=== PATIENT | male | born 1960 | race African-American/Black ===

== ENCOUNTER 2017-04-05 05:59 | Day surgery (SDC) | payer BC ==
[~2017-04-05] VITALS: Ht 175.3 cm; Wt 91.4 kg
[~2017-04-05 05:59] MED LIST: LEVAQUIN500 MG PO; LISINOPRIL10 MG PO; TESTOSTERON200 MG/ML IM
[2017-04-05] MEDS ORDERED: NEXIUM20 MG PO (07:27)
[2017-04-05 07:34] VITALS: Ht 175.3 cm; Wt 91.4 kg
[2017-04-05 07:55] LABS: HEMATOCRIT 49.9 % (42.0-54.0); HEMOGLOBIN 17.4 g/dL (13.5-17.5); MCH 28.3 pg (26.0-34.0); MCHC 34.9 g/dL (31.0-37.0); MCV 81.1 fL (80.0-100.0); MEAN PLATELET VOLUME 10.5 fL (7.4-10.4); RBC 6.15 10x6/uL (4.20-6.10); RDW 13.6 % (11.5-14.5); WBC 11.3 10x3/uL (4.8-10.8)
--- NOTE | 2017-04-05 14:20 | NUR ---
1000--PT VOIDS WITHOUT DIFFICULTY, IV DC'D. PAULINE ECHAVARRIA 1010--DISCHARGE INSTRUCTIONS GIVEN, PT VERBALIZES UNDERSTANDING. PT OFF UNIT VIA WC. PAULINE ECHAVARRIA
--- NOTE | 2017-04-05 21:16 | OP ---
PATIENT NAME: MATTHEW MAYFIELD MEDICAL RECORD: [id number] :64 LOCATION:D.OPS ADMISSION DATE: SURGEON: PRATIK SORTO MD DATE OF OPERATION: 04/05/2017 DATE OF OPERATION: 04/05/2017 SURGEON: Pratik Sorto MD PREOPERATIVE DIAGNOSES: 1. Screening colonoscopy. 2. Hypertension. 3. Gastroesophageal reflux disease. POSTOPERATIVE DIAGNOSES: 1. Screening colonoscopy. 2. Hypertension. 3. Gastroesophageal reflux disease. PROCEDURE PERFORMED: Colonoscopy with hot biopsy. ANESTHESIA: Total intravenous anesthesia. SPECIMENS: 1. Ascending colon polyp. 2. Polyp at 60 cm. 3. Polyp at 40 cm. COMPLICATIONS: None. Case was contaminated. ESTIMATED BLOOD LOSS: Minimal. OPERATIVE COURSE: After consent was obtained, the patient was taken to the endoscopy suite. A timeout was taken to confirm the correct patient and procedure. The patient was placed in left lateral decubitus position, total intravenous anesthesia was given. Digital rectal exam was performed. The scope was then inserted into the rectum. The rectum was insufflated. The scope was advanced to the cecum. Ileocecal valve was identified and pictured. The appendiceal orifice was identified. Approximately 12 minutes was spent on withdrawal of the scope. Three polyps were identified, #1 in the ascending colon, #2 was at 60 cm and #3 was at 40 cm. Hot biopsy was taken of all 3 polyps. No area of bleeding was identified. No diverticulosis was identified. In the rectum, the scope was retroflexed. There was some small internal hemorrhoids noted, grade I. At this time, the scope was reinserted to the descending colon. The colon was desufflated as the scope was withdrawn. The patient will need interval colonoscopy in 3-5 years. At this time, the scope was removed and the procedure was terminated. At the end of the case, all instrument counts were correct. The patient tolerated the procedure well and was transferred to the recovery room in satisfactory condition. TRANSINT:[id number] Voice Confirmation ID: [id number] DOCUMENT ID: [id number] OPERATIVE REPORT [id number] MATTHEW MAYFIELD PRATIK SORTO MD at 2116 CC: [id number] DICTATION DATE: 04/05/17 0838 WEIGHT CLERK: 04/05/17 1322 [facility] 04/05/17 [facility] [address] [place] [address]
== END 2017-04-05 10:10 | disposition home or self-care (01) ==
LOC: D.OPS 05:59
PROVIDERS: Anesthesiology
DX: Z12.11 Encounter for screening for malignant neoplasm of colon (principal); D12.2 Benign neoplasm of ascending colon; D12.4 Benign neoplasm of descending colon; K63.5 Polyp of colon; K64.0 First degree hemorrhoids; I10 Essential (primary) hypertension; K21.9 Gastro-esophageal reflux disease without esophagitis; Z01.812 Encounter for preprocedural laboratory examination

== ENCOUNTER → 2018-09-13 15:04 | Outpatient (CLI) | payer OTHER ==
[2017-04-05 07:34] VITALS: BMI 29.7
[~2018-09-13 15:04] MED LIST changes: +NEXIUM20 MG PO
== END | disposition home or self-care (01) ==
LOC: D.US 15:04
PROVIDERS: ATTEND Family Medicine Adult Medicine
DX: M79.604 Pain in right leg (principal)

== ENCOUNTER 2019-01-22 02:40 | Emergency (ER) | payer OTHER ==
[~2019-01-22] VITALS: Ht 175.3 cm; Wt 90.5 kg
[2019-01-22] MEDS ORDERED: FLOMAX0.4 MG PO (02:56)
[2019-01-22] MEDS ORDERED: [UNRECOGNIZED DRUG - REMARK] (02:57)
[2019-01-22] MEDS ORDERED: LISINOPRIL5 MG PO (02:57)
[2019-01-22 03:27] LABS: BASOPHILS 0.4 % (0-2); EOSINOPHILS 2.8 % (0-7); HEMATOCRIT 45.7 % (42.0-54.0); HEMOGLOBIN 15.6 g/dL (13.5-17.5); IMMATURE GRANULOCYTES 0.2 % (0-5); LYMPHOCYTES 33.3 % (15-50); MCH 27.7 pg (26.0-34.0); MCHC 34.1 g/dL (31.0-37.0); MEAN PLATELET VOLUME 10.2 fL (7.4-10.4); MONOCYTES 12.9 % (2-11); NEUTROPHILS 50.4 % (40-80); PLATELET COUNT 288 10x3/uL (130-400); RBC 5.64 10x6/uL (4.20-6.10); RDW 13.9 % (11.5-14.5); WBC 8.9 10x3/uL (4.8-10.8)
[2019-01-22 03:45] LABS: ALBUMIN 3.7 g/dL (3.4-5.0); ALKALINE PHOSPHATASE 60 U/L (46-116); ALT (SGPT) 47 U/L (10-68); BILIRUBIN - TOTAL 0.37 mg/dL (0.2-1.3); CALC OSMOLALITY 280 mosm/kg (275-300); CALCIUM 8.4 mg/dL (8.5-10.1); CARBON DIOXIDE 27.4 mmol/L (21.0-32.0); CHLORIDE - SERUM 104 mmol/L (98-107); CREATININE - SERUM 0.9 mg/dL (0.6-1.3); GLUCOSE 101 mg/dL (74-106); POTASSIUM - SERUM 3.8 mmol/L (3.5-5.1); PROTEIN - SERUM 7.3 g/dL (6.4-8.2); SODIUM 140 mmol/L (136-145); UREA NITROGEN 17 mg/dL (7-18); eGFR NON AFRICAN AMERICAN > 90 mL/min (90-120)
[2019-01-22 04:02] LABS: CKMB 1.8 U/L (0.0-3.6); CREATINE KINASE 102 UL (21-232)
[2019-01-22 04:03] LABS: PRO BNP 8 pg/mL (0-125); TROPONIN-I < 0.017 ng/mL (0.000-0.060)
== END 2019-01-22 04:30 | disposition home or self-care (01) ==
LOC: D.ER 02:40
PROVIDERS: Family Medicine
DX: G47.30 Sleep apnea, unspecified (principal); K21.9 Gastro-esophageal reflux disease without esophagitis; R06.02 Shortness of breath

== ENCOUNTER → 2019-01-25 08:26 | Outpatient (CLI) | payer OTHER ==
[2019-01-22 02:55] VITALS: BMI 29.4
[~2019-01-25 08:26] MED LIST changes: +FLOMAX0.4 MG PO; +LISINOPRIL5 MG PO; +[UNRECOGNIZED DRUG - REMARK]
--- NOTE | 2019-01-27 09:56 | EC ---
PATIENT:MATTHEW MAYFIELD DATE OF SERVICE: 01/25/19 SEX: M MEDICAL RECORD: [id number] DATE OF : 64 LOCATION:D.COUNTS INCLUDE 234 BEDS AT THE [facility] AGE OF PATIENT: 58 ADMISSION DATE: 01/25/19 REFERRING PHYSICIAN: INTERPRETING PHYSICIAN: DAYA LUCIANO MD ECHOCARDIOGRAM REPORT ECHO CHARGES 4 ECHO COMPLETE Date: 01/25/19 CLINICAL DIAGNOSIS: DYSPNEA HX HTN ECHOCARDIOGRAPHIC MEASUREMENTS (adult normal given) AC root (d.<3.7cm) 3.3 cm LV Septum d (<1.2 cm> 1.3 cm Valve Excursion 1.5 cm LV Septum (systole) 1.6 cm Left Atria (s.<4.0cm> 3.9 cm LVPW d(<1.2cm) 1.5 cm RV (d.<2.3cm) 4.0 cm LVPW (sytole) 1.7 cm LV diastole(<5.6CM) 4.3 cm MV E-F(>70mm/sec) cm LV systole 2.8 cm LVOT Diameter 1.9 cm MV exc.(>10mm) 1.7 cm Est.ejection fraction (50-75%) % DOPPLER: LVIT cm/sec A 86.0 cm/sec E 74.0 cm/sec LA cm/sec RVSP 42 mmHg LVOT 100 cm/sec AOP1/2T m/s Asc. Ao 114 cm/sec RVOT 71 cm/sec RA cm/sec PA 103 cm/sec AV Gradient Peak 5.17 mmHg AV Mean 2.71 mmHg AV Area 3.3 cm MV Gradient Peak 4.16 mmHg MV Mean 1.55 mmHg MV Area cm COMMENTS: Neon Sign Installer: Wade AGUIRRE Client Consultant: 3 Dr. Yancey TAPE# PACS Pericardial Effusion N DATE OF SERVICE: 01/25/2019 Adequate 2D, color flow imaging, spectral Doppler, and M-Mode LVH is present. LV internal dimensions are normal. Wall motion is normal. EF is greater than or equal to 55%. Aortic valve is tricuspid. There is no evidence of stenosis by Doppler interrogation. Left atrium is normal at 3.9 cm. Mitral valve shows no prolapse. Trace MR. Right-sided chambers are grossly normal. Trace TR. ECHOCARDIOGRAM REPORT [id number] MATTHEW MAYFIELD TRANSINT:[id number] Voice Confirmation ID: [id number] DOCUMENT ID: [id number] DAYA LUCIANO MD at 0956 CC: [id number] DICTATION DATE: 01/26/19953 SOURCING INTERNSHIP: 01/26/19 1135 DEP CLI 01/25/19 [facility] [address] [place] [id number]
--- NOTE | 2019-01-27 09:56 | EC ---
PATIENT:MATTHEW MAYFIELD DATE OF SERVICE: 01/25/19 SEX: M MEDICAL RECORD: [id number] DATE OF : 64 LOCATION:D.[facility] AGE OF PATIENT: 58 ADMISSION DATE: 01/25/19 REFERRING PHYSICIAN: INTERPRETING PHYSICIAN: DAYA LUCIANO MD ECHOCARDIOGRAM REPORT ECHO CHARGES 4 ECHO COMPLETE Date: 01/25/19 CLINICAL DIAGNOSIS: DYSPNEA HX HTN ECHOCARDIOGRAPHIC MEASUREMENTS (adult normal given) AC root (d.<3.7cm) 3.3 cm LV Septum d (<1.2 cm> 1.3 cm Valve Excursion 1.5 cm LV Septum (systole) 1.6 cm Left Atria (s.<4.0cm> 3.9 cm LVPW d(<1.2cm) 1.5 cm RV (d.<2.3cm) 4.0 cm LVPW (sytole) 1.7 cm LV diastole(<5.6CM) 4.3 cm MV E-F(>70mm/sec) cm LV systole 2.8 cm LVOT Diameter 1.9 cm MV exc.(>10mm) 1.7 cm Est.ejection fraction (50-75%) % DOPPLER: LVIT cm/sec A 86.0 cm/sec E 74.0 cm/sec LA cm/sec RVSP 42 mmHg LVOT 100 cm/sec AOP1/2T m/s Asc. Ao 114 cm/sec RVOT 71 cm/sec RA cm/sec PA 103 cm/sec AV Gradient Peak 5.17 mmHg AV Mean 2.71 mmHg AV Area 3.3 cm MV Gradient Peak 4.16 mmHg MV Mean 1.55 mmHg MV Area cm COMMENTS: Explosive Operator Supervisor: Wade AGUIRRE Pattern Duplicator: 3 Dr. Yancey TAPE# PACS Pericardial Effusion N DATE OF SERVICE: 01/25/2019 Adequate 2D, color flow imaging, spectral Doppler, and M-Mode Mild LVH. LV internal dimension is normal. Wall motion is normal. EF is greater than or equal to 55%. Aortic valve is tricuspid. No evidence of stenosis on Doppler interrogation. The left atrium is normal at 3.9 cm. Mitral valve shows no prolapse. Trace MR. Right-sided chambers are grossly normal. Trace TR. ECHOCARDIOGRAM REPORT [id number] MATTHEW MAYFIELD TRANSINT:[id number] Voice Confirmation ID: [id number] DOCUMENT ID: [id number] DAYA LUCIANO MD at 0956 CC: [id number] DICTATION DATE: 01/25/19 1232 MILKING MACHINE TECHNICIAN: 01/25/19 1321 DEP CLI 01/25/19 [place] [id number] [place] [id number]
== END | disposition home or self-care (01) ==
LOC: D.ECHO 08:26
PROVIDERS: ATTEND Family Medicine Adult Medicine
DX: R06.00 Dyspnea, unspecified (principal)

== ENCOUNTER → 2019-08-05 09:10 | Outpatient (CLI) | payer OTHER ==
[2019-01-22 02:55] VITALS: BMI 29.4
[~2019-08-05 09:10] MED LIST changes: +VIAGRA100 MG PO
== END | disposition home or self-care (01) ==
LOC: D.CT 09:10
PROVIDERS: ATTEND Nurse Practitioner
DX: I73.89 Other specified peripheral vascular diseases (principal)

== ENCOUNTER 2019-08-07 13:29 | Inpatient (IN) | payer OTHER ==
[~2019-08-07] VITALS: Ht 175.3 cm; Wt 89.1 kg
[~2019-08-07 13:29] MED LIST changes: -VIAGRA100 MG PO; +VOLTAREN75 MG PO; -[UNRECOGNIZED DRUG - REMARK]
[2019-08-07] MEDS ORDERED: VIAGRA100 MG PO (14:18)
[2019-08-07 15:00] VITALS: BP 106/64
[2019-08-07 15:12] LABS: CALC OSMOLALITY 272 mosm/kg (275-300); CALCIUM 8.3 mg/dL (8.5-10.1); CARBON DIOXIDE 30.3 mmol/L (21.0-32.0); CHLORIDE - SERUM 100 mmol/L (98-107); CREATININE - SERUM 1.3 mg/dL (0.6-1.3); GLUCOSE 99 mg/dL (74-106); POTASSIUM - SERUM 3.6 mmol/L (3.5-5.1); SODIUM 137 mmol/L (136-145); UREA NITROGEN 11 mg/dL (7-18); eGFR NON AFRICAN AMERICAN 61 mL/min (90-120)
[2019-08-07 15:22] LABS: SPECIFIC GRAVITY 1.015 (1.005-1.020)
[2019-08-07 15:24] LABS: BACTERIA FEW /hpf (NEGATIVE); HEMATOCRIT 46.1 % (42.0-54.0); HEMOGLOBIN 15.2 g/dL (13.5-17.5); MCH 27.7 pg (26.0-34.0); MEAN PLATELET VOLUME 10.5 fL (7.4-10.4); PLATELET COUNT 240 10x3/uL (130-400); RBC 5.49 10x6/uL (4.20-6.10); RDW 13.6 % (11.5-14.5); RED CELLS - URINE 0-5 /hpf (0-5); WBC 23.7 10x3/uL (4.8-10.8)
[2019-08-07 15:31] LABS: ALBUMIN 3.6 g/dL (3.4-5.0); ALKALINE PHOSPHATASE 50 U/L (30-120); ALT (SGPT) 32 U/L (10-68); BILIRUBIN - TOTAL 0.66 mg/dL (0.2-1.3); C-REACTIVE PROTEIN 4.9 mg/dL (0.0-0.9); CKMB 1.3 U/L (0.0-3.6); CREATINE KINASE 174 UL (21-232); FERRITIN 164 ng/mL (3-244); MAGNESIUM - SERUM 1.7 mg/dL (1.8-2.4); PROTEIN - SERUM 7.3 g/dL (6.4-8.2)
[2019-08-07 15:39] LABS: LYMPHOCYTES 5 % (15-50); MONOCYTES 3 % (2-11); NEUTROPHILS 91 % (40-80); PLATELET ESTIMATE NORMAL; TROPONIN-I < 0.017 ng/mL (0.000-0.060)
[2019-08-07 19:18] VITALS: BP 104/52
[2019-08-07 20:00] VITALS: BP 115/63
[2019-08-08 04:00] VITALS: BP 118/65
[2019-08-08 07:12] LABS: BASOPHILS 0.1 % (0-2); EOSINOPHILS 0 % (0-7); HEMATOCRIT 42.3 % (42.0-54.0); HEMOGLOBIN 13.9 g/dL (13.5-17.5); IMMATURE GRANULOCYTES 0.5 % (0-5); MCH 27.5 pg (26.0-34.0); MCHC 32.9 g/dL (31.0-37.0); MCV 83.8 fL (80.0-100.0); MEAN PLATELET VOLUME 10.8 fL (7.4-10.4); MONOCYTES 9.8 % (2-11); NEUTROPHILS 81.6 % (40-80); PLATELET COUNT 227 10x3/uL (130-400); RBC 5.05 10x6/uL (4.20-6.10); RDW 13.9 % (11.5-14.5); WBC 24.6 10x3/uL (4.8-10.8)
[2019-08-08 07:16] LABS: ANION GAP 11.8 mmol/L (8-16); CALCIUM 7.7 mg/dL (8.5-10.1); CARBON DIOXIDE 28.9 mmol/L (21.0-32.0); CREATININE - SERUM 1.2 mg/dL (0.6-1.3); MAGNESIUM - SERUM 1.6 mg/dL (1.8-2.4); PHOSPHOROUS 2.3 mg/dL (2.5-4.9); POTASSIUM - SERUM 3.7 mmol/L (3.5-5.1)
[2019-08-08 07:59] VITALS: BP 115/63; Ht 175.3 cm; Wt 89.1 kg
[2019-08-08 08:49] VITALS: BP 122/76
[2019-08-08 12:17] VITALS: BP 122/73
[2019-08-08 16:59] VITALS: BP 120/77
[2019-08-08 19:40] LABS: BILIRUBIN NEGATIVE (NEGATIVE); GLUCOSE NEGATIVE (NEGATIVE); KETONE NEGATIVE (NEGATIVE); NITRITE NEGATIVE (NEGATIVE); SPECIFIC GRAVITY 1.005 (1.005-1.020); UROBILINOGEN NORMAL (NORMAL)
[2019-08-08 20:00] VITALS: BP 119/79
--- NOTE | 2019-08-08 20:00 | NUR ---
PATIENT RESTING IN BED WATCHING TV. NO S/S OF ACUTE DISTRESS. PATIENT C/O A HEADACHE THAT WON'T GO AWAY. I GAVE PATIENT AN ICE PACK, AND TOLD HIM IT WOULD BE ABOUT ANOTHER 4 HOURS BEFORE HE COULD GET A TYLENOL AGAIN. PATIENT HAS IV IN RIGHT HAND, NORMAL SALINE @ 125 ML/HR. IV IS PATENT WITHOUT REDNESS, SWELLING, OR TENDERNESS. PATIENT IS UP ADLIB. CALL LIGHT IN PLACE. WILL CONTINUE TO MONITOR.
--- NOTE | 2019-08-09 02:22 | NUR ---
I have reviewed this patient and I concur with the Shift Assessment completed by the Licensed Practical Nurse today this shift.
[2019-08-09 04:00] VITALS: BP 101/61
[2019-08-09 05:26] LABS: HEMATOCRIT 40.1 % (42.0-54.0); HEMOGLOBIN 13.3 g/dL (13.5-17.5); MCH 27.6 pg (26.0-34.0); MCHC 33.2 g/dL (31.0-37.0); MCV 83.2 fL (80.0-100.0); MEAN PLATELET VOLUME 9.8 fL (7.4-10.4); PLATELET COUNT 206 10x3/uL (130-400); RBC 4.82 10x6/uL (4.20-6.10); RDW 13.9 % (11.5-14.5)
[2019-08-09 05:42] LABS: ANION GAP 11.1 mmol/L (8-16); CALCIUM 7.8 mg/dL (8.5-10.1); CARBON DIOXIDE 26.9 mmol/L (21.0-32.0); CREATININE - SERUM 1.1 mg/dL (0.6-1.3); MAGNESIUM - SERUM 1.8 mg/dL (1.8-2.4); PHOSPHOROUS 1.9 mg/dL (2.5-4.9)
--- NOTE | 2019-08-09 08:00 | NUR ---
ASSESSMENT PER FLOW SHEET. PATIENT IS WITHOUT DISTRESS.CALL LIGHT IN REACH.
[2019-08-09 09:00] VITALS: BP 106/60
[2019-08-09 09:15] LABS: LYMPHOCYTES 12 % (15-50); MONOCYTES 11 % (2-11); NEUTROPHILS 75 % (40-80); PLATELET ESTIMATE NORMAL
[2019-08-09 13:00] VITALS: BP 129/80
--- NOTE | 2019-08-09 15:54 | NUR ---
REMAINS WITHOUT NEEDS.DOOR OPEN
--- NOTE | 2019-08-09 18:37 | NUR ---
REMAINS WITHOUT NEEDS,WITHOUT CHANGE.CONT PLAN OF CARE
[2019-08-09 20:30] VITALS: BP 126/75
--- NOTE | 2019-08-09 20:30 | NUR ---
AWAKE,ALER.NO COMPALITNS VOICED. RESP UNALBORED. NO DISTRESS NOTED. IV TO RIGHT HAND INTACT WITHOUT REDNESS OR EDEMA NOTED. CL IN REACH
[2019-08-10 00:56] VITALS: BP 120/82
[2019-08-10 04:01] VITALS: BP 127/87
[2019-08-10 05:07] LABS: BASOPHILS 0.1 % (0-2); EOSINOPHILS 1.1 % (0-7); HEMATOCRIT 38.9 % (42.0-54.0); IMMATURE GRANULOCYTES 0.4 % (0-5); LYMPHOCYTES 12.5 % (15-50); MCH 27.7 pg (26.0-34.0); MCHC 33.4 g/dL (31.0-37.0); MCV 82.8 fL (80.0-100.0); MEAN PLATELET VOLUME 9.6 fL (7.4-10.4); MONOCYTES 10.7 % (2-11); NEUTROPHILS 75.2 % (40-80); RDW 13.9 % (11.5-14.5)
[2019-08-10 05:11] LABS: PLATELET COUNT 249 10x3/uL (130-400); WBC 14.1 10x3/uL (4.8-10.8)
[2019-08-10 05:43] LABS: CALC OSMOLALITY 276 mosm/kg (275-300); CALCIUM 8.1 mg/dL (8.5-10.1); CARBON DIOXIDE 23.7 mmol/L (21.0-32.0); CHLORIDE - SERUM 105 mmol/L (98-107); CREATININE - SERUM 0.8 mg/dL (0.6-1.3); GLUCOSE 95 mg/dL (74-106); MAGNESIUM - SERUM 1.9 mg/dL (1.8-2.4); PHOSPHOROUS 2.8 mg/dL (2.5-4.9); POTASSIUM - SERUM 3.9 mmol/L (3.5-5.1); SODIUM 139 mmol/L (136-145); UREA NITROGEN 9 mg/dL (7-18); eGFR NON AFRICAN AMERICAN > 90 mL/min (90-120)
--- NOTE | 2019-08-10 05:51 | NUR ---
I have reviewed this patient and I concur with the Shift Assessment completed by the Licensed Practical Nurse today this shift.
[2019-08-10 08:00] VITALS: BP 155/95
--- NOTE | 2019-08-10 08:04 | NUR ---
ALERT AND ORIENTED. LUNGS CLEAR BILATERALLY. HEART SOUNDS S1 AND S2 HEARD IN ALL RU[place]. BOWEL SOUNDS ACTIVE X 4. SKIN INTACT WITHOUT REDNESS. IV TO RIGHT HAND PATENT WITHOUT REDNESS. DENIES PAIN. DENIES NEEDS. BED LOW. CALL PEDRO AND PERSONAL ITEMS IN REACH. WILL CONTINUE TO MONITOR.
[2019-08-10 08:45] VITALS: BP 133/90
--- NOTE | 2019-08-10 13:25 | NUR ---
UNHOOKED FOR SHOWER. DENIES FURTHER NEEDS. WILL CONTINUE TO MONITOR.
[2019-08-10 16:00] VITALS: BP 121/91
--- NOTE | 2019-08-10 19:00 | NUR ---
BEDSIDE REPORT RECEIVED AND CARE OF PT ASSUMED. PT LYING IN LOW GOEL'S POSITION WATCHING TV. IV TO RIGHT HAND PATENT WITH NS INFUSING AT 125 ML/HR. WILL MONITOR FOR NEEDS.
--- NOTE | 2019-08-10 20:30 | NUR ---
HS MEDICATIONS GIVEN. WILL CONTINUE TO MONITOR FOR NEEDS.
[2019-08-11 04:00] VITALS: BP 121/85
--- NOTE | 2019-08-11 05:35 | NUR ---
GAVE TYLENOL 650 MG PO PER PRN ORDER, PER REQUEST FOR HEADACHE AT LEVEL 4/10. WILL MONITOR FOR EFFECTIVENESS.
[2019-08-11 05:41] LABS: BASOPHILS 0.2 % (0-2); EOSINOPHILS 3.1 % (0-7); HEMATOCRIT 38.8 % (42.0-54.0); HEMOGLOBIN 12.9 g/dL (13.5-17.5); IMMATURE GRANULOCYTES 0.4 % (0-5); LYMPHOCYTES 20.8 % (15-50); MCH 27.3 pg (26.0-34.0); MCHC 33.2 g/dL (31.0-37.0); MCV 82.2 fL (80.0-100.0); NEUTROPHILS 65.5 % (40-80); PLATELET COUNT 274 10x3/uL (130-400); RBC 4.72 10x6/uL (4.20-6.10); RDW 13.7 % (11.5-14.5)
[2019-08-11 06:02] LABS: CALC OSMOLALITY 276 mosm/kg (275-300); CALCIUM 8.4 mg/dL (8.5-10.1); CARBON DIOXIDE 25.2 mmol/L (21.0-32.0); CHLORIDE - SERUM 105 mmol/L (98-107); CREATININE - SERUM 0.9 mg/dL (0.6-1.3); GLUCOSE 96 mg/dL (74-106); MAGNESIUM - SERUM 1.8 mg/dL (1.8-2.4); PHOSPHOROUS 3.4 mg/dL (2.5-4.9); POTASSIUM - SERUM 3.9 mmol/L (3.5-5.1); SODIUM 139 mmol/L (136-145); UREA NITROGEN 11 mg/dL (7-18); eGFR NON AFRICAN AMERICAN > 90 mL/min (90-120)
--- NOTE | 2019-08-11 07:40 | NUR ---
PT SITTING UP IN BED AWAKE AND ALERT, NO S/SX OF DISTRESS, BREATHING IS EVEN AND UNLABORED, LUNGS CTA, IV IN RT HAND PATENT, NO SWELLING OR REDNESS AT SIGHT, ASSUME PT CARE CONTINUE WITH PLAN OF CARE
[2019-08-11 09:00] VITALS: BP 148/85
[2019-08-11] MEDS ORDERED: FEXOFENADINE HC60 MG PO (10:23)
[2019-08-11] MEDS ORDERED: Nicoderm [PBKC] TRANSDERM (10:24)
[2019-08-11] MEDS ORDERED: FLUTICASONE PRO16 GM NASAL (10:24)
[2019-08-11] MEDS ORDERED: PROSCAR5 MG PO (10:24)
[2019-08-11] MEDS ORDERED: FLORAJEN3 CAPS460 MG PO (10:24)
[2019-08-11] MEDS ORDERED: LEVOFLOXACIN500 MG PO (10:25)
--- NOTE | 2019-08-11 10:59 | NUR ---
OFFERED PT TOBACCO QUITLINE REFERRAL. HE DECLINED, STATED "I'M GONNA TRY TO GO [place]".
--- NOTE | 2019-08-11 11:52 | NUR ---
PT DC HOME, WENT OVER DC PAPERWORK WITH PT AND ANSWERED ALL QUESTIONS. NO OTHER NEEDS. IV IN LEFT HAND DC WITH CATHETER INTACT.
--- NOTE | 2019-08-11 17:15 | MORECARE ---
CASE MANAGEMENT DISCHARGE SUMMARY PATIENT: MATTHEW MAYFIELD UNIT: [id number] ADM DATE: 08/07/19 AGE: 58 : 64 SEX: M ROOM/BED: D.2224 AUTHOR: STACIA ZAVALA PHYSICIAN: REFERRING PHYSICIAN: ELISA ZHAO MD DATE OF SERVICE: 08/11/19 Discharge Plan Patient Name: MATTHEW MAYFIELD [facility] [facility] 1960 Planned Disposition: Home Anticipated Discharge Date: 08/11/19 Discharge Date: 08/11/2019 Expected LOS: 4 Initial Reviewer: [email or web address] Initial Review Date: 08/07/2019 Generated: 08/11/19 6:14 pm Patient Name: MATTHEW MAYFIELD Page [id number] at 1715 All edits/amendments must be made on the electronic document DICTATION DATE: 08/11/191713 SLOTTER OPERATOR: WILL 08/11/191713 RPT#: [id number] DC DATE:08/11/19 STATUS: DIS IN [facility] [address] [facility] [place] [address] END OF REPORT
--- NOTE | 2019-08-11 17:21 | MORECARE ---
CASE MANAGEMENT DISCHARGE SUMMARY PATIENT: MATTHEW MAYFIELD UNIT: [id number] ADM DATE: 08/07/19 AGE: 58 : 64 SEX: M ROOM/BED: D.2224 AUTHOR: SALLYDOC PHYSICIAN: REFERRING PHYSICIAN: ELISA ZHAO MD DATE OF SERVICE: 08/11/19 Discharge Plan Patient Name: MATTHEW MAYFIELD Facility: [facility]:[place] : 1960 Planned Disposition: Home Anticipated Discharge Date: 08/11/19 Discharge Date: 08/11/2019 Expected LOS: 4 Initial Reviewer: [email or web address] Initial Review Date: 08/07/2019 Generated: 08/11/19 6:21 pm Comments DCP- Discharge Planning Updated by [email or web address]: Maribel Caldwell on 08/11/19 4:[address] CM met with patient regarding DC needs/plans. Patient lives independently with his . PCP: Dr. Saucedo. Pharmacy: [facility]. DME: None. Gives permission to speak with his , Myrna #[phone]. Denies the need for HHS, Rehab, SNF, DME. States his home is a safe environment. Denies being hospitalizations within past 30 days. Patient's will drive him home. DCPIA - Discharge Planning Initial Assessment Updated by [email or web address]: Maribel Caldwell on 08/11/19 5:18 pm * Is the patient Alert and Oriented? Yes * How many steps to enter\exit or inside your home? * PCP Dr. Barajas * Pharmacy [facility] * Preadmission Environment Home with Family * ADLs Independent * Equipment None * Other Equipment NA * List name and contact numbers for known caregivers / representatives who currently or will assist patient after discharge: Myrna Mayfield () [phone] * Verbal permission to speak to the caregivers and representatives has been obtained from the patient. Yes * Community resources currently utilized None * Please name any agencies selected above. NA * Additional services required to return to the preadmission environment? No * Can the patient safely return to the preadmission environment? Yes * Has this patient been hospitalized within the prior 30 days at any hospital? No Last DP export: 08/11/19 4:15 p Patient Name: MATTHEW MAYFIELD Page [id number] at 1721 All edits/amendments must be made on the electronic document DICTATION DATE: 08/11/191720 WOOD TOOL MAKER: WILL 08/11/191720 RPT#: [id number] DC DATE:08/11/19 STATUS: DIS IN [facility] [address] [place] [address] END OF REPORT
--- NOTE | 2019-08-12 10:39 | MORECARE ---
CASE MANAGEMENT DISCHARGE SUMMARY PATIENT: MATTHEW MAYFIELD UNIT: [id number] ADM DATE: 08/07/19 AGE: 58 : 64 SEX: M ROOM/BED: D.2224 AUTHOR: SALLYDOC PHYSICIAN: REFERRING PHYSICIAN: ELISA ZHAO MD DATE OF SERVICE: 08/12/19 Discharge Plan Patient Name: MATTHEW MAYFIELD Facility: [facility]:[place] : 1960 Planned Disposition: Home Anticipated Discharge Date: 08/11/19 Discharge Date: 08/11/2019 Expected LOS: 4 Initial Reviewer: [email or web address] Initial Review Date: 08/07/2019 Generated: 08/12/19 11:39 am Comments DCP- Discharge Planning Updated by [email or web address]: Maribel Caldwell on 08/11/19 4:[address] CM met with patient regarding DC needs/plans. Patient lives independently with his . PCP: Dr. Saucedo. Pharmacy: [facility]. DME: None. Gives permission to speak with his , Myrna #[phone]. Denies the need for HHS, Rehab, SNF, DME. States his home is a safe environment. Denies being hospitalizations within past 30 days. Patient's will drive him home. DCPIA - Discharge Planning Initial Assessment Updated by [email or web address]: Maribel Caldwell on 08/11/19 5:18 pm * Is the patient Alert and Oriented? Yes * How many steps to enter\exit or inside your home? * PCP Dr. Barajas * Pharmacy [facility] * Preadmission Environment Home with Family * ADLs Independent * Equipment None * Other Equipment NA * List name and contact numbers for known caregivers / representatives who currently or will assist patient after discharge: Myrna Mayfield () [phone] * Verbal permission to speak to the caregivers and representatives has been obtained from the patient. Yes * Community resources currently utilized None * Please name any agencies selected above. NA * Additional services required to return to the preadmission environment? No * Can the patient safely return to the preadmission environment? Yes * Has this patient been hospitalized within the prior 30 days at any hospital? No Last DP export: 08/11/19 4:21 p Patient Name: MATTHEW MAYFIELD Page [phone] at 1039 All edits/amendments must be made on the electronic document DICTATION DATE: 08/12/19 103 FIRER HELPER: WILL 08/12/19 1039 RPT#: [id number] DC DATE:08/11/19 STATUS: DIS IN [facility] [address] [place] [address] END OF REPORT
== END 2019-08-11 11:53 | disposition home or self-care (01) | DRG 690 ==
LOC: D.ER 13:29 → D.MS 17:47
PROVIDERS: Family Medicine; ADMIT Family Medicine; ATTEND Family Medicine
DX: N30.90 Cystitis, unspecified without hematuria (principal); F17.203 Nicotine dependence unspecified, with withdrawal; N12 Tubulo-interstitial nephritis, not specified as acute or chronic; N41.0 Acute prostatitis; E83.42 Hypomagnesemia; K21.9 Gastro-esophageal reflux disease without esophagitis; I73.9 Peripheral vascular disease, unspecified; E78.5 Hyperlipidemia, unspecified; R91.1 Solitary pulmonary nodule; I11.0 Hypertensive heart disease with heart failure; I50.9 Heart failure, unspecified

== ENCOUNTER 2019-08-19 17:13 | Observation (INO) | payer OTHER ==
[~2019-08-19] VITALS: Ht 175.3 cm; Wt 89.2 kg
--- NOTE | ~2019-08-19 | HEMODYNAMI ---
PATIENT:MATTHEW MAYFIELD MEDICAL RECORD: [id number] : 64 LOCATION:[facility] D.2124 [facility]# [id number] ADMISSION DATE: 08/19/19 Generatedon:08/20/201916:30 Patient name: MATTHEW MAYFIELD Patient #: [id number] SSN: [id number] : 1960 Date of study: 08/20/2019 Page: Of Hemodynamic Procedure Report Patient Data Patient Demographics Procedure consent was obtained First Name: MATTHEW Gender: Male Last Name: TRAN : 1960 Middle Initial: L Age: 58 year(s) Patient #: [id number] Race: Black SSN: [id number] Additional ID: [id number] Contact details Address: [address] [place] [address] State: [place] City: [place] Zip code: [address] Past Medical History History of disease Date Diagnosis Comments CAD Allergies Allergen Reaction Date Comments Reported Penicillins 08/20/2019 Admission Admission Data Admission Date: 08/19/2019 Admission Time: 17:58 Arrival Date: 08/20/2019 Arrival Time: 0:00 Admit Source: Other Insurance Payor: Private Room #: [id number] health insurance Height (in.): 70.87 BSA: 2.06 (m2) Height (cm.): 180 BMI: 26.54 (kg/m2) Weight (lbs.): 189.6 Weight (kg.): 86 Current Diagnosis Diagnosis Description Unstable angina Lab Results Lab Result Date: 08/20/2019 Lab Result Time: 0:00 Biochemistry Name Units Result Min Max BUN mg/dl 11 --(-*--)-- 7 18 CK-MB ng/ml 1 --(-*--)-- 0 3.6 Creatinine mg/dl 0.9 --(-*--)-- 0.6 1.3 eGFR ml/min 90 --(*---)-- 90 120 AM Troponin l ng/ml 0.017 --(-*--)-- 0 0.06 CBC Name Units Result Min Max Hematocrit % 45 --(*---)-- 42 54 Hemoglobin g/dl 14.9 --(-*--)-- 13.5 17.5 Procedure Procedure Types Cath Procedure Diagnostic Procedure [facility] w/Coronaries FFR/IVUS FFR Initial Sedation Charges Moderate Sedation up to 30 minutes PCI Procedure Coronary Stent Coronary Stent Initial Hemochron ACT Test Procedure Description Procedure Date Procedure Date: 08/20/2019 Procedure Start Time: 15:52 Procedure End Time: 16:28 Procedure Staff Name Function Jose Alberto Foster MD Performing Physician Nola Mendieta RT Scrub Nidhi Simon RT Monitor Karrie Marques RN Nurse Shannon Brody RT Monitor Asha Campo RN Cigar Maker Procedure Data Cath Procedure Fluoroscopy Diagnostic fluoroscopy Total fluoroscopy Time: 8.3 time: 8.3 min min Diagnostic fluoroscopy Total fluoroscopy dose: dose: 1083 mGy 1083 mGy Contrast Material Contrast Material Type Amount (ml) Isovue 300 127 Entry Location Entry Primary Successful Side Size Upsize Upsize Entry Closure Succes sful Closure Location (Fr) 1 (Fr) 2 (Fr) Remarks Device Remarks Femoral Right 5 Fr 6 Fr Exoseal artery Short Estimated blood loss: 10 ml Diagnostic catheters Device Type Used For End Catheter Placement MULTIPACK JL 4.0 5Fr Procedure catheter DIAGNOSTIC JL 3.5 5Fr Procedure catheter ([id number]) MULTIPACK 3DRC 5Fr Procedure catheter MULTIPACK Pigtail 5 Fr Procedure catheter Procedure Complications No complications Procedure Medications Medication Administration Route Dosage 0.9% NaCl I.V. 100 ml/hr Oxygen etCO2 Nasal cannula 2 l/min Lidocaine 2% added to field 20 Heparin Flush Bag added to field 2 bags (1000units/500ml NS) Versed I.V. 2 mg Fentanyl I.V. 50 mcg Fentanyl I.V. 50 mcg Heparin Bolus I.V. 2000 units Heparin Bolus I.V. 3000 units Integrilin (Bolus I.V. 11.3 ml 2mg/ml) Integrilin (Bolus wasted 8.7 ml 2mg/ml) Plavix P.O. 600 mg Hemodynamics Rest BSA: 2.06 (m2) HGB: 14.9 (g/dl) O2 Consumption: Estimated: 256.9 (ml/min) O2 Con sumption indexed: Estimated:124.71 (ml/min/m) Heart Rate: 87 (bpm) Pressure Samples Time Site Value (mmHg) Purpose Heart Use Rate(bpm) 15:59 LV 100/11,9 Snapshot 106 15:59 AO 106/76(89) Pullback 90 Gradients Valve Time Site Site 2 Mean SEP/DFP Peak To Heart Use 1 (mmHg) (sec/min) Peak Rate (mmHg) (bpm) Aortic 15:59 LV AO 90 106/76(89) Snapshots Pre Cath Intra NCS Post Cath Vital Signs Time Heart Resp SPO2 etCO2 NIBP (mmHg) Rhythm Pain Sedation Rate (ipm) (%) (mmHg) Status Level (bpm) 15:20:05 94 17 96 0 127/80(119) NSR 0 (11) 10(A) , No pain 15:24:17 93 14 97 0 117/75(87) NSR 0 (11) 10(A) , No pain 15:28:25 89 19 97 0 116/71(94) NSR 0 (11) 10(A) , No pain 15:32:30 93 15 98 0 114/78(100) NSR 0 (11) 10(A) , No pain 15:36:38 86 14 97 0 122/73(92) NSR 0 (11) 10(A) , No pain 15:40:48 87 13 97 38.8 116/76(99) NSR 0 (11) 10(A) , No pain 15:44:56 97 13 96 41.8 134/70(85) NSR 0 (11) 10(A) , No pain 15:49:08 90 14 98 8.9 102/77(89) NSR 0 (11) 9(A) , No pain 15:53:12 92 13 97 48.5 112/69(96) NSR 0 (11) 9(A) , No pain 15:57:20 92 15 96 45.5 121/71(95) NSR 0 (11) 9(A) , No pain 16:02:19 116 17 97 16.4 101/83(96) NSR 0 (11) 9(A) , No pain 16:06:20 94 14 96 45.5 115/70(84) NSR 0 (11) 9(A) , No pain 16:10:28 91 13 96 41 116/68(82) NSR 0 (11) 9(A) , No pain 16:14:36 91 12 97 47.7 114/75(88) NSR 0 (11) 9(A) , No pain 16:18:40 91 12 96 44 121/80(93) NSR 0 (11) 9(A) , No pain 16:22:45 91 14 96 40.2 125/83(94) NSR 0 (11) 10(A) , No pain 16:26:55 90 13 98 29 123/75(93) NSR 0 (11) 10(A) , No pain Medications Time Medication Route Dose Verified Delivered Reason Notes Effectiveness by by 15:17:26 0.9% NaCl I.V. 100 Jose Alberto Yoon used for ml/hr Archie Jerald procedure MD [place] 15:17:32 Oxygen etCO2 2 Jose Alberto Fleminga used for Nasal l/min Archie Jerald procedure cannula MD [place] 15:17:37 Lidocaine 2% added 20ml Jose Alberto Abrams for local to vial [facility] anesthetic field MD [place] 15:17:43 Heparin Flush added 2 Jose Alberto Abrams used for Bag to bags [facility] procedure (1000units/500ml field MD [place] NS) 15:40:14 Versed I.V. 2 mg Jose Alberto Yoon for sedation [facility] Kumar Marques MD, RN 15:40:35 Fentanyl I.V. 50 Jose Alberto Fleminga for sedation mcg [facility] Kumar Marques MD, RN 15:46:17 Fentanyl I.V. 50 Jose Alberto Fleminga for sedation mcg [facility] Kumar Marques MD, RN 15:58:39 Heparin Bolus I.V. 2000 Jose Alberto Yoon for units [facility] Kumar Marques anticoagulation MD [place] 16:06:36 Heparin Bolus I.V. 3000 Jose Alberto Yoon for units [facility] Kumar Marques anticoagulation MD [place] 16:06:43 Integrilin I.V. 11.3 Jose Alberto Fleminga for (Bolus 2mg/ml) ml [facility] Kumar Marques antiplatelet MD [place] therapy 16:08:02 Integrilin wasted 8.7 Jose Alberto Fleminga for (Bolus 2mg/ml) ml [facility] Kumar Marques antiplatelet MD [place] therapy 16:27:30 Plavix P.O. 600 Jose Alberto Barry for mg St Kumar Campo RN antiplatelet therapy Procedure Log Time Note 14:38:10 Informed consent obtained and on chart 14:47:31 ACC Patient presents with Unstable Angina CCS Anginal Class 3--Marked limitation of physical activity, angina occurs with ordinary activity.. 14:47:35 Nola Mendieta RT(R) sent for patient. Start room use. 14:47:38 Time tracking: Regular hours (M-F 7:00 - 5:00) 14:47:42 Plan of Care:Hemodynamics will remain stable., Cardiac rhythm will remain stable., Comfort level will be maintained., Respiratory function will remain adequate., Patient/ family verbilizes understanding of procedure., Procedure tolerated without complication., Recovers from procedure without complications.. 14:47:49 H&P Date Dictated: 08/20/2019 Within 30 days and on chart.. 14:48:06 Patient allergic to Penicillins 14:48:13 Is the patient allergic to Iodine/contrast media? No. 14:48:15 Was the patient premedicated? N/A 14:49:25 Is patient on blood thinner?No 14:51:38 ACC The patient was administered the following blood thiners within the last 24 hours: None 14:51:46 Patient diabetic? Yes. 14:51:47 If diabetic: On Metformin? Yes 14:51:53 Patient not . Patient is over age 55. 14:53:26 Insurance Payor : Private health insurance 14:53:33 Patient Height : 70.87 inches 14:53:37 Patient Weight : 189.6 lbs 14:53:44 Current Diagnosis : Unstable angina 15:11:14 Lab Result : Creatinine 0.9 mg/dl 15:11:14 Lab Result : Hematocrit 45 % 15:11:14 Lab Result : Hemoglobin 14.9 g/dl 15:11:14 Lab Result : eGFR AM 90 ml/min 15:11:22 Patient received from Med II to CCL 2 Alert and oriented. Tansferred to table in Supine position. 15:11:23 Warm blankets applied, and flor hugger turned on for patient comfort. 15:11:23 Correct patient and procedure confirmed by team. 15:11:24 ECG and BP/O2 sat monitors applied to patient. 15:11:26 Full Disclosure recording started 15:17:18 Vital chart was started 15:17:26 0.9% NaCl 100 ml/hr I.V. was administered by Karrie Marques RN; used for procedure; Verbal order read back and verified. 15:17:32 Oxygen 2 l/min etCO2 Nasal cannula was administered by Karrie Marques RN; used for procedure; Verbal order read back and verified. 15:17:37 Lidocaine 2% 20ml vial added to field was administered by Jose Alberto Foster MD; for local anesthetic; Verbal order read back and verified. 15:17:43 Heparin Flush Bag (1000units/500ml NS) 2 bags added to field was administered by Jose Alberto Foster MD; used for procedure; Verbal order read back and verified. 15:19:13 Baseline sample Acquired. 15:19:17 Rhythm: sinus rhythm 15:19:21 Pre-procedure instructions explained to patient. 15:19:21 Pre-op teaching completed and patient verbalized understanding. 15:19:40 Family AVAILABLE WITH PHONE CALL 15:19:52 Patient NPO since Midnight. 15:19:56 Previous problem with sedation/anesthesia? No ? 15:19:57 Snore? Yes 15:19:59 Sleep apnea? No 15:20:00 Deviated septum? No 15:20:02 Opens mouth fully? Yes 15:20:03 Sticks out tongue? Yes 15:20:05 Airway obstruction? No ? 15:20:10 Dentures? Yes IN TIGHT 15:20:22 Pre procedure: right dorsailis pedis pulse 1+ Palpable, but thready & weak; easily obliterated 15:20:25 Patient pain scale 0/10 ?. 15:20:41 IV patent on arrival in left antecubital with 0.9% NaCl at O. 15:20:45 Lab results completed and on chart. 15:20:48 Stress Test: no; N/A ? 15:20:51 Right groin area was prepped with chlora-prep and draped in sterile fashion 15:20:52 Alarms reviewed by R. N. 15:20:52 Sharps counted by scrub and verified by R.N. 15:20:58 Use device set Femoral Dx 15:20:59 ACIST Syringe (19193) opened to sterile field. 15:21:00 Bag Decanter () opened to sterile field. 15:21:01 ACIST Hand Control (95072) opened to sterile field. 15:21:01 ACIST Manifold (74034) opened to sterile field. 15:21:02 Tegaderm 4 x 4 (4766W) opened to sterile field. 15:21:03 DIAGNOSTIC Multipack 5Fr catheter set (UZ4890) opened to sterile field. 15:21:04 SHEATH 5FR [place] (BWZ571) opened to sterile field. 15:21:05 EMERALD Guide Wire (502-932) opened to sterile field. 15:21:06 Medline Cath Pack ([id number]) opened to sterile field. 15:39:21 Physician arrived 15:39:22 Final Timeout: patient, procedure, and site verified with staff and physician. All members of the team are in agreement. 15:39:25 Right groin site verified by team. 15:39:30 Fire Safety Assessment: A--An alcohol-based skin anteseptic being used preoperatively., C--Open oxygen or nitrous oxide is being used., D--An ESU, laser, or fiber-optic light is being used. 15:39:36 Physical assessment completed. ASA score P 2 - A patient with mild systemic disease as per Jose Alberto Foster MD. 15:39:39 1) 90+ Normal kidney functon but urine findings or structural abnormalities or genetic trait point to kidney disease. 15:39:42 Maximum allowable contrast dose (3.7 X eGFR X 0.75)250 ml. 15:39:46 Sedation plan: IV Moderate Sedation Medication:Versed, Fentanyl 15:40:14 Versed 2 mg I.V. was administered by Karrie Marques RN; for sedation; Verbal order read back and verified. 15:40:35 Fentanyl 50 mcg I.V. was administered by Karrie Marques RN; for sedation; Verbal order read back and verified. 15:46:17 Fentanyl 50 mcg I.V. was administered by Karrie Marques RN; for sedation; Verbal order read back and verified. 15:52:01 Procedure started. 15:52:11 Local anesthetic to right femoral artery with Lidocaine 2% by Jose Alberto Foster MD.INITIAL ACCESS ONLY 15:52:19 A 5 Fr sheath was inserted into the Right Femoral artery 15:52:26 J wire advanced. 15:52:48 A MULTIPACK JL 4.0 5Fr catheter was advanced over the wire and used for Procedure. 15:52:49 LCA angiography performed. 15:53:40 Catheter removed. 15:54:06 A DIAGNOSTIC JL 3.5 5Fr catheter ([id number]) was advanced over the wire and used for Procedure. 15:54:15 LCA angiography performed. 15:55:40 Injector settings: Ml/sec: 3, Volume: 6, 15:55:42 Catheter removed. 15:56:02 A MULTIPACK 3DRC 5Fr catheter was advanced over the wire and used for Procedure. 15:56:08 RCA angiography performed. 15:56:11 Injector settings: Ml/sec: 3, Volume: 6, 15:56:50 ACCDominant side:Right 15:57:51 Catheter removed. 15:57:59 A MULTIPACK Pigtail 5 Fr catheter was advanced over the wire and used for Procedure. 15:58:39 Heparin Bolus 2000 units I.V. was administered by Karrie Marques RN; for anticoagulation; Verbal order read back and verified. 15:59:11 LV gram done using IRAHETA 15:59:28 LV hemodynamics recorded. 15:59:35 EF : 55 % 15:59:55 Zero performed for pressure channel P1 16:00:00 Catheter removed. 16:00:01 Proceeding to intervention. 16:00:46 GUIDE 5FR AR2.0 catheter ([id number]) opened to sterile field. 16:00:51 5 Fr AR 2 guide catheter was inserted over the wire 16:01:00 Use device set [place] PCI 16:01:03 INFLATOR Merit BasixCompak (QT7578) opened to sterile field. 16:01:12 [place] Verrata Plus pressure wire (05673Z) opened to sterile field. 16:01:47 FFR/IFR wire advanced. 16:02:52 Wire advanced across lesion. 16:03:48 mRCA lesion measured at .70 with IFR 16:04:53 Wire redirected to PROX RCA. 16:04:58 Wire advanced across lesion. 16:05:10 pRCA lesion measured at .76 with IFR 16:05:22 Catheter removed. 16:05:30 SHEATH 6FR [place] (HQF136) opened to sterile field. 16:05:32 WHISPER 300cm guide wire ([id number]) opened to sterile field. 16:06:36 Heparin Bolus 3000 units I.V. was administered by Karrie Marques RN; for anticoagulation; Verbal order read back and verified. 16:06:43 Integrilin (Bolus 2mg/ml) 11.3 ml I.V. was administered by Karrie Marques RN; for antiplatelet therapy; Verbal order read back and verified. 16:06:50 GUIDE 6FR AR 2.0 catheter ([id number]) opened to sterile field. 16:07:04 Sheath upsized to a 6 Fr Short. 16:07:18 6 Fr AR 2.0 guide catheter was inserted over the wire 16:07:28 Pre PCI Site: [place] RCA has 80% stenosis. 16:08:02 Integrilin (Bolus 2mg/ml) 8.7 ml wasted was administered by Karrie Marques RN; for antiplatelet therapy; Verbal order read back and verified. 16:08:35 WHISPER 300 wire advanced. 16:11:49 Place stent Inflation Number: 1 A SONJA OTW 3.5 x 12 stent ([id number]) was prepped and advanced across the Mid RCA 80. The stent was deployed at 14 SIOBHAN for 0:00 (min:sec) . 16:12:17 Stent catheter was removed intact over wire. 16:12:18 Wire removed. 16:12:29 CHOICE PT Extra Support J 300cm guide wire ([id number]) opened to sterile field. 16:12:48 CHOICE PT ES 300 wire advanced. 16:13:40 Place stent Inflation Number: 1 A SONJA OTW 3.5 x 15 stent ([id number]) was prepped and advanced across the Undefined1 . The stent was deployed at 10 SIOBHAN for 0:00 (min:sec) . 16:14:37 Stent catheter was removed intact over wire. 16:16:24 Inflation number: 1 The stent balloon was then re-inflated across the Prox RCA to 14 SIOBHAN for 0:00 (min:sec) . 16:16:50 Stent catheter was removed intact over wire. 16:16:51 Wire removed. 16:16:51 Guide catheter removed. 16:16:56 EXOSEAL 6Fr (EX600) opened to sterile field. 16:17:11 Sheath removed intact; hemostasis achieved with Exoseal to the Right Femoral artery. 16:18:04 Procedure ended.(Physican Out) 16:18:14 Fluoroscopy time 08.30 minutes. 16:18:19 Fluoroscopy dose: 1083 mGy 16:18:19 Flurop Dose total: 1083 16:18:23 Dose Area Product 72724 mGy/cm. 16:18:35 Contrast amount:Isovue 300 127ml. 16:18:37 Sharps counted by scrub and verified by R.N. 16:18:39 Maximum allowable dose exceeded? No. 16:19:00 Admit Source: Other 16:19:02 Arrival Date: 08/20/2019 12:00:00 AM 16:19:11 Post-op/insertion site Right Femoral artery dressed using a 4 x 4 and Tegaderm. 16:19:14 Post Procedure Pulses reassessed and unchanged 16:19:20 Post-procedure physical assessment completed. ASA score P 2 - A patient with mild systemic disease as per Jose Alberto Foster MD. 16:19:23 Post procedure rhythm: unchanged. 16:19:25 Estimated blood loss: 10 ml 16:19:27 Post procedure instruction explained to patient.Patient verbalizes understanding. 16:19:27 Patient needs reinforcement of post procedure teaching. 16:21:21 Procedure type changed to Cath procedure, Diagnostic procedure, LHC, C w/Coronaries, FFR/IVUS, FFR Initial, Sedation Charges, Moderate Sedation up to 30 minutes, PCI procedure, Coronary Stent, Coronary Stent Initial, Hemochron ACT Test 16:21:55 Procedure and supply charges have been captured, reviewed, submitted and are correct. 16:21:59 Procedure Complication : No complications 16:22:04 [facility] Findings: MVD- PCI performed (see procedure note) 16:22:06 Operative report dictated upon procedure completion. 16:22:07 See physician's report for complete and final results. 16:22:08 Report given to [facility] II. 16:22:12 Patient transfered to [facility] with Bed. 16:27:30 Plavix 600 mg P.O. was administered by Asha Campo RN; for antiplatelet therapy; Verbal order read back and verified. 16:27:50 Lab Result : Troponin l 0.017 ng/ml 16:27:50 Lab Result : CK-MB 1 ng/ml 16:27:50 Lab Result : BUN 11 mg/dl 16:27:50 Hemodynamic formulas in Rest were re-calculated based on hemoglobin value from 08/20/2019 12:00:00 AM 16:28:03 ACT drawn and resulted at 231 seconds. (normal therapeutic range 180-240 seconds). 16:28:43 Vital chart was stopped 16:28:45 Procedure ended. 16:28:45 Full Disclosure recording stopped Intervention Summary Intervention Notes Time ActionType Lesion and Equipment Action# Pressure Duration Attributes Used 16:11:49 Place stent Mid RCA SONJA OTW 3.5 1 14 00:00 x 12 stent ([id number]) 16:13:40 Place stent Undefined1 SONJA OTW 3.5 1 10 00:00 x 15 stent ([id number]) 16:16:24 Reinflate Prox RCA SONJA OTW 3.5 1 14 00:00 stent x 15 stent balloon ([id number]) Device Usage Item Name Manufacture Quantity Catalog Number Hospital Part Current Minimal Lot# / Charge Number Stock Stock Serial# Code ACIST Syringe Acist 1 05398 593919 255332 454516 20 (47436) Medical Systems Inc Bag Decanter Microtek 1 2001S 546474 83072 542798 5 (2001S) Medical Inc. ACIST Hand Acist 1 33261 347014 058507 190734 5 Control Medical (20227) Systems Inc ACIST Acist 1 23090 859067 258894 325587 5 Manifold Medical (16318) Systems Inc Tegaderm 4 x 3M 1 1626W 387576 738481 634002 5 4 (1626W) DIAGNOSTIC Cardinal 1 IU2200 818492 45030 261067 30 Multipack 5Fr Health catheter set (XE6726) SHEATH 5FR Terumo 1 SZD388 309800 730721 169410 5 [place] (TLK105) EMERALD Guide Cardinal 1 502-455 520615 256514 481902 5 Wire Health (502-455) Medline Cath Medline 1 [id number] 643951 98552 617353 5 Pack ([id number]) MULTIPACK JL Cardinal 1 647562 5 4.0 5Fr Health catheter DIAGNOSTIC JL Cardinal 1 912961M 437710 012437 759383 5 3.5 5Fr Health catheter (661014Y) MULTIPACK Cardinal 1 939558 5 3DRC 5Fr Health catheter MULTIPACK Cardinal 1 316894 5 Pigtail 5 Fr Health catheter GUIDE 5FR Medtronic 1 [id number] 507056 667618 362266 1 AR2.0 catheter (UA1FV87) INFLATOR Merit 1 SV5772 028993 820265 583353 15 [facility] Medical BasixCompak (CM3459) [place] 1 35382M 496133 266965162 923246 5 Verrata Plus pressure wire (33305B) SHEATH 6FR Terumo 1 GKU574 011483 707300 499132 40 [place] (THJ258) WHISPER 300cm Manri[place] 1 [id number] 051466 267637 264472 5 guide wire Vascular (7535229YN) GUIDE 6FR AR Medtronic 1 [id number] 278470 04854 402713 1 2.0 catheter (HO8KV57) SONJA OTW 3.5 Medtronic 1 [id number] 520132 9830148 629783 5 [id number] x 12 stent ([id number]) CHOICE PT Squire 1 [id number] 519174 470009 469453 5 Extra Support Scientific J 300cm guide wire (0639154H4) SONJA OTW 3.5 Medtronic 1 [id number] 229556 6558341 397527 5 [id number] x 15 stent ([id number]) EXOSEAL 6Fr Cardinal 1 EX600 355207 748017 223346 10 (EX600) Health Signature Audit [place] Stage Time Signature Unsigned Intra-Procedure 08/20/2019 Shannon Brody 4:29:03 PM RT(R); Asha Campo RN; Jose Alberto Foster MD Signatures Performing Physician : Signature : Jose Alberto Foster MD Date : Time : Monitor : Nidhi Simon RT Signature : Date : Time : Nurse : Karrie Marques RN Signature : Date : Time : Monitor : Shannon Young RT Signature : Date : Time : [address] [place] [address]
[~2019-08-19 17:13] MED LIST changes: +FEXOFENADINE HC60 MG PO; +FLORAJEN3 CAPS460 MG PO; +FLUTICASONE PRO16 GM NASAL; +LEVOFLOXACIN500 MG PO; +Nicoderm [PBKC] TRANSDERM; +PROSCAR5 MG PO; +VIAGRA100 MG PO
[2019-08-19] MEDS ORDERED: ASPIRIN81 MG PO (17:20)
--- NOTE | 2019-08-19 17:30 | NUR ---
PATIENT DID NOT HAVE HEART CATH, HAD ECHO IN JANUARY 2019.
[2019-08-19 17:42] VITALS: BP 133/76
[2019-08-19 17:47] LABS: APTT 29.6 SECONDS (22.8-39.4); INR 1.01 (0.85-1.17); PROTIME 13.3 SECONDS (11.6-15.0)
[2019-08-19 17:48] LABS: BASOPHILS 0.1 % (0-2); EOSINOPHILS 1.4 % (0-7); HEMOGLOBIN 15.5 g/dL (13.5-17.5); IMMATURE GRANULOCYTES 0.4 % (0-5); LYMPHOCYTES 25.7 % (15-50); MCH 27.7 pg (26.0-34.0); MCHC 33.7 g/dL (31.0-37.0); MCV 82.3 fL (80.0-100.0); MEAN PLATELET VOLUME 9.4 fL (7.4-10.4); MONOCYTES 7.5 % (2-11); NEUTROPHILS 64.9 % (40-80); RBC 5.59 10x6/uL (4.20-6.10); RDW 13.5 % (11.5-14.5); WBC 13.5 10x3/uL (4.8-10.8)
[2019-08-19 17:50] LABS: PLATELET COUNT 366 10x3/uL (130-400)
[2019-08-19 17:52] LABS: CALC OSMOLALITY 274 mosm/kg (275-300); CALCIUM 8.5 mg/dL (8.5-10.1); CARBON DIOXIDE 27.8 mmol/L (21.0-32.0); CHLORIDE - SERUM 100 mmol/L (98-107); CREATININE - SERUM 0.9 mg/dL (0.6-1.3); GLUCOSE 122 mg/dL (74-106); POTASSIUM - SERUM 3.7 mmol/L (3.5-5.1); SODIUM 137 mmol/L (136-145); UREA NITROGEN 13 mg/dL (7-18); eGFR NON AFRICAN AMERICAN > 90 mL/min (90-120)
[2019-08-19 18:08] LABS: ALBUMIN 3.5 g/dL (3.4-5.0); ALKALINE PHOSPHATASE 69 U/L (30-120); ALT (SGPT) 31 U/L (10-68); BILIRUBIN - TOTAL 0.25 mg/dL (0.2-1.3); CKMB 1.5 U/L (0.0-3.6); CREATINE KINASE 99 UL (21-232); MAGNESIUM - SERUM 2.1 mg/dL (1.8-2.4); PROTEIN - SERUM 7.6 g/dL (6.4-8.2)
[2019-08-19 18:10] LABS: TROPONIN-I < 0.017 ng/mL (0.000-0.060)
[2019-08-19 18:59] VITALS: BP 145/84
[2019-08-19 20:00] VITALS: BP 140/85
--- NOTE | 2019-08-19 20:13 | NUR ---
PATIENT ARRIVED TO FLOOR VIA WHEELCHAIR. PATIENT IS ALERT AND ORIENTED, SITTING ON THE SIDE OF BED. EATING BBQ. NO S/S OF DISTRESS. NO C/OPAIN. CALL LIGHT WITHIN REACH. WILL CPOC.
[2019-08-19 22:55] VITALS: BP 140/85; Ht 175.3 cm; Wt 89.2 kg
[2019-08-19 23:54] LABS: CKMB 1.2 U/L (0.0-3.6); CREATINE KINASE 91 UL (21-232); TROPONIN-I < 0.017 ng/mL (0.000-0.060)
[2019-08-20 01:12] VITALS: BP 140/78
[2019-08-20 04:05] VITALS: BP 135/77
[2019-08-20 05:50] LABS: BASOPHILS 0.2 % (0-2); EOSINOPHILS 1.9 % (0-7); HEMOGLOBIN 14.9 g/dL (13.5-17.5); IMMATURE GRANULOCYTES 0.3 % (0-5); LYMPHOCYTES 21.1 % (15-50); MCH 27.4 pg (26.0-34.0); MCHC 33.1 g/dL (31.0-37.0); MCV 82.7 fL (80.0-100.0); MEAN PLATELET VOLUME 10.1 fL (7.4-10.4); MONOCYTES 8.8 % (2-11); NEUTROPHILS 67.7 % (40-80); PLATELET COUNT 342 10x3/uL (130-400); RBC 5.44 10x6/uL (4.20-6.10); RDW 13.8 % (11.5-14.5); WBC 10.8 10x3/uL (4.8-10.8)
[2019-08-20 06:44] LABS: ALBUMIN 3.2 g/dL (3.4-5.0); ALKALINE PHOSPHATASE 61 U/L (30-120); ALT (SGPT) 26 U/L (10-68); BILIRUBIN - TOTAL 0.22 mg/dL (0.2-1.3); CALC OSMOLALITY 272 mosm/kg (275-300); CALCIUM 8.4 mg/dL (8.5-10.1); CARBON DIOXIDE 29.6 mmol/L (21.0-32.0); CHLORIDE - SERUM 103 mmol/L (98-107); CKMB 1.1 U/L (0.0-3.6); CREATINE KINASE 87 UL (21-232); CREATININE - SERUM 0.9 mg/dL (0.6-1.3); GLUCOSE 97 mg/dL (74-106); MAGNESIUM - SERUM 2.2 mg/dL (1.8-2.4); PHOSPHOROUS 3.2 mg/dL (2.5-4.9); PRO BNP 10 pg/mL (0-125); PROTEIN - SERUM 6.4 g/dL (6.4-8.2); SODIUM 137 mmol/L (136-145); TROPONIN-I < 0.017 ng/mL (0.000-0.060); UREA NITROGEN 11 mg/dL (7-18); eGFR NON AFRICAN AMERICAN > 90 mL/min (90-120)
[2019-08-20 06:45] LABS: POTASSIUM - SERUM 4.4 mmol/L (3.5-5.1)
--- NOTE | 2019-08-20 07:20 | NUR ---
RECIEVE REPORT. ALERT AND ORIENTED X4. RESTING IN BED. UA COLLECTED AND TAKEN TO LAB. SINUS RYTHM ON TELEMETRY. DENIES ANY NEEDS. CONTINUE PLAN OF CARE AND SAFETY PRECAUTIONS.
[2019-08-20 07:53] VITALS: BP 128/68
[2019-08-20 08:09] LABS: BILIRUBIN NEGATIVE (NEGATIVE); GLUCOSE NEGATIVE (NEGATIVE); KETONE NEGATIVE (NEGATIVE); NITRITE NEGATIVE (NEGATIVE); SPECIFIC GRAVITY 1.005 (1.005-1.020); UROBILINOGEN NORMAL (NORMAL)
--- NOTE | 2019-08-20 10:14 | NUR ---
ALERT AND ORIENTED X4. SITTING UP IN BED. 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 DENIES ANY NEEDS. CONTINUE PLAN OF CARE AND SAFETY PRECAUTIONS.
[2019-08-20 10:27] LABS: CHOL - HDL RATIO 7.3 ratio (2.3-4.9); LDL-HDL RATIO 4.8 ratio (1.5-3.5)
[2019-08-20 11:28] VITALS: BP 128/82
[2019-08-20 12:40] LABS: CREATINE KINASE 86 UL (21-232)
[2019-08-20 12:41] LABS: ALT (SGPT) 34 U/L (10-68); TROPONIN-I < 0.017 ng/mL (0.000-0.060)
--- NOTE | 2019-08-20 16:46 | NUR ---
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 BP-142/62, HR-95 SINUS RYTHM, O2-95% RA. RT GROIN DRESSING CLEAN DRY INTACT. FREE FROM HEMATOMA. FREE FROM BLEEDING. ENCOURAGE TO REMAIN FLAT FOR NEXT 4 HOURS DUE TO INCREASE RISK FOR BLEEDING. PULSE +2 BILATERALLY. CONTINUE PLAN OF CARE AND SAFETY PRECAUTIONS.
[2019-08-20 22:16] VITALS: BP 117/67
[2019-08-21 00:40] VITALS: BP 129/77
--- NOTE | 2019-08-21 01:50 | NUR ---
I have reviewed this patient and I concur with the Shift Assessment completed by the Licensed Practical Nurse today this shift.
[2019-08-21 05:29] VITALS: BP 136/75
[2019-08-21 05:54] LABS: BASOPHILS 0.1 % (0-2); EOSINOPHILS 0 % (0-7); HEMATOCRIT 44.9 % (42.0-54.0); HEMOGLOBIN 15.1 g/dL (13.5-17.5); IMMATURE GRANULOCYTES 0.4 % (0-5); LYMPHOCYTES 11.3 % (15-50); MCH 27.5 pg (26.0-34.0); MCHC 33.6 g/dL (31.0-37.0); MCV 81.6 fL (80.0-100.0); MEAN PLATELET VOLUME 9.5 fL (7.4-10.4); MONOCYTES 7.8 % (2-11); NEUTROPHILS 80.4 % (40-80); PLATELET COUNT 365 10x3/uL (130-400); RDW 13.8 % (11.5-14.5)
[2019-08-21 06:09] LABS: CALC OSMOLALITY 277 mosm/kg (275-300); CALCIUM 8.4 mg/dL (8.5-10.1); CARBON DIOXIDE 25.9 mmol/L (21.0-32.0); CHLORIDE - SERUM 102 mmol/L (98-107); CREATININE - SERUM 0.9 mg/dL (0.6-1.3); GLUCOSE 102 mg/dL (74-106); MAGNESIUM - SERUM 2.1 mg/dL (1.8-2.4); PHOSPHOROUS 3.7 mg/dL (2.5-4.9); SODIUM 139 mmol/L (136-145); UREA NITROGEN 12 mg/dL (7-18); eGFR NON AFRICAN AMERICAN > 90 mL/min (90-120)
[2019-08-21 06:10] LABS: POTASSIUM - SERUM 3.7 mmol/L (3.5-5.1)
[2019-08-21 06:30] LABS: WBC 16.9 10x3/uL (4.8-10.8)
--- NOTE | 2019-08-21 07:35 | NUR ---
ASSESSMENT DONE. DENIES NEEDS
[2019-08-21 08:40] VITALS: BP 143/81
[2019-08-21] MEDS ORDERED: Nicoderm [PBKC] TRANSDERM (11:20)
[2019-08-21] MEDS ORDERED: PLAVIX75 MG PO (11:20)
[2019-08-21 11:29] VITALS: BP 142/73
[2019-08-21] MEDS ORDERED: LIPITOR20 MG PO (12:35)
--- NOTE | 2019-08-21 12:45 | NUR ---
I have reviewed this patient and I concur with the Shift Assessment completed by the Licensed Practical Nurse today this shift.
--- NOTE | 2019-08-21 12:59 | NUR ---
DC GIVEN TO PT
--- NOTE | 2019-08-21 13:01 | NUR ---
DC HOME PER PERSONAL CAR
--- NOTE | 2019-08-22 07:20 | MORECARE ---
CASE MANAGEMENT DISCHARGE SUMMARY PATIENT: MATTHEW MAYFIELD UNIT: [id number] ADM DATE: 08/19/19 AGE: 58 : 64 SEX: M ROOM/BED: D.3924 AUTHOR: STACIA ZAVALA PHYSICIAN: REFERRING PHYSICIAN: ANTHONY SAINI MD DATE OF SERVICE: 08/22/19 Discharge Plan Patient Name: MATTHEW MAYFIELD [facility] [facility] 1960 Planned Disposition: Anticipated Discharge Date: Discharge Date: 08/21/2019 Expected LOS: 0 Initial Reviewer: [email or web address] Initial Review Date: 08/22/2019 Generated: 08/22/19 8:19 am Patient Name: MATTHEW MAYFIELD Page [phone] at 0720 All edits/amendments must be made on the electronic document DICTATION DATE: 08/22/19718 FIELD ENUMERATOR: WILL 08/22/19718 RPT#: [id number] DC DATE:08/21/19 STATUS: DIS IN [facility] [address] [place] [address] END OF REPORT
--- NOTE | 2019-08-22 14:09 | CN ---
PATIENT NAME:MATTHEW MAYFIELD MEDICAL RECORD: [id number] : 64 LOCATION:[facility] D.2124 ADMIT DATE: 08/19/19 ACCOUNT: [id number] CONSULTING PHYSICIAN: DAYA LUCIANO MD REFERRING PHYSICIAN: ANTHONY SAINI MD DATE OF CONSULTATION: 08/20/2019 HISTORY OF PRESENT ILLNESS: A 58-year-old gentleman with no known history of coronary artery disease. He has a history of peripheral vascular disease, managed medically at this point, diagnosed with AFRO. He has a history of dyslipidemia as well as hypertension, admitted with chest pain that has been ongoing for the past 2-3 weeks. He has tightness and pressure radiating to the jaw, early with rest had rest symptomology yesterday prompting admission. ALLERGIES: IODINE. MEDICATIONS: Include Flomax 0.4 every day, lisinopril 5 mg p.o. every day, aspirin 81 every day, Nexium 20 every day, testosterone supplementation. SOCIAL HISTORY: Smokes about a pack a day, nondrinker. Does try to walk on a similar regular basis; however, this is just since being diagnosed of peripheral vascular disease. REVIEW OF SYSTEMS: The patient reports easy bruising but reports no swollen glands. The patient reports no fever, no night sweats, no significant weight gain, no significant weight loss. No significant exercise tolerance. The patient reports no dry eyes, no irritation, no vision change. Patient reports no difficulty hearing and no ear pain. Patient reports no frequent nose bleeds or nose and sinus problems. Patient reports on arm pain on exertion. No shortness of breath while lying down. No history of heart murmur. Patient reports no cough, no wheezing or coughing up blood. Patient reports no abdominal pain, no vomiting. Normal appetite. No diarrhea and not vomiting blood. No nausea and no constipation. Patient reports no incontinence. No difficulty urinating. No hematuria. No increased frequency. Patient reports no muscle aches. No weakness, no arthralgias, no back pain. No swelling of the extremities. Patient reports no abnormal mole, no jaundice, no rashes. Reports no loss of consciousness. No weakness and no numbness. No seizures, dizziness, or headaches. The patient reports no depression, no sleep disturbance, feeling safe in a relationship and no alcohol abuse. Patient reports on fatigue. Reports no runny nose or sinus pressure. No itching, no hives, and no frequent sneezing. PHYSICAL EXAMINATION: GENERAL: Pleasant gentleman in no acute distress, appears stated age. VITAL SIGNS: Blood pressure 128/68, pulse 82 and regular. HEENT: Normocephalic, atraumatic. NECK: No bruits are noted. HEART: Regular, II/ systolic ejection murmur. LUNGS: Good air excursion. ABDOMEN: Soft, nontender. EXTREMITIES: Pulses are 1/2-1 on the right, 1+ on the left. NEUROLOGIC: Grossly intact. DIAGNOSTIC DATA: EKG shows nonspecific ST-T changes, probable LVH. CONSULT REPORT [id number] MATTHEW MAYFIELD IMPRESSION: Acute coronary syndrome, known peripheral vascular disease. PLAN: For angiography, intervention based on the above. TRANSINT:[id number] Voice Confirmation ID: [id number] DOCUMENT ID: [id number] DAYA LUCIANO MD at 1409 CC: [id number] DICTATION DATE: 08/20/19 0859 TURN MACHINE OPERATOR: 08/20/19 1241 DIS IN 08/21/19 [facility] [address] [place] [address]
--- NOTE | 2019-08-22 14:09 | OP ---
PATIENT NAME: MATTHEW MAYFIELD MEDICAL RECORD: [id number] :64 LOCATION:D.M2 D.2124 ADMISSION DATE:08/19/19 SURGEON: DAYA LUCIANO MD DATE OF OPERATION: 08/20/2019 PROCEDURE: Left heart catheterization, selective coronary angiography, right femoral artery approach. CATHETERS: A 5-Romansh sheath, 5/4 left and right Libby, 5/4 pig. The procedure was well tolerated. We proceeded to do a PTCA stenting of the right coronary after IFR wire. FINDINGS: Left ventriculography in 30-degree [place] view: Normal wall motion and normal systolic function. CORONARY ANATOMY: LEFT MAIN: Left main is free of disease. LAD: Free of diagonal system. CIRCUMFLEX: Free of disease in the marginal system. RIGHT CORONARY ARTERY: Has 2 angiography with apparent 80% stenosis, one distally and one in the proximal third. This was confirmed with an abnormal IFR wire 0.76. DESCRIPTION OF PROCEDURE: A 5-Romansh sheath exchanged for a 6-Romansh sheath. AR2 guiding catheter provided good guide catheter support followed by 300 cm wire was placed across the tightly occluded ____ down this portion of vessel. Distal lesion was addressed with a 3.5 x 12 mm Veblen drug eluting stent and more proximally a 15 mm x 3.5 Fred drug eluting stent, both at 14 atmospheres for 45 seconds. Final angiography shows excellent resolution of two 80% stenosis, no significant residual. KJ flow was 3 throughout the procedure. Heparin and Integrilin were used during the case. Sheath was closed with ExoSeal device. Plavix loaded in the lab. TRANSINT:[id number] Voice Confirmation ID: [id number] DOCUMENT ID: [id number] DAYA LUCIANO MD at 1409 CC: [id number] DICTATION DATE: 08/20/19 1637 SHOT BAGGER: 08/21/19 0144 DIS IN 08/21/19 [facility] [address] [place] [address]
== END 2019-08-21 13:01 | disposition home or self-care (01) ==
LOC: D.ER 17:13 → D.M2 17:58 → OBSVTIME 18:44 → D.M2 08-21 13:01
PROVIDERS: Family Medicine; Internal Medicine Interventional Cardiology; ADMIT Family Medicine; ATTEND Family Medicine
DX: I25.10 Atherosclerotic heart disease of native coronary artery without angina pectoris (principal); F17.203 Nicotine dependence unspecified, with withdrawal; I11.0 Hypertensive heart disease with heart failure; I50.20 Unspecified systolic (congestive) heart failure; E78.5 Hyperlipidemia, unspecified